=== PATIENT | female | born 1960 | race Caucasian/White ===

== ENCOUNTER 2016-09-12 18:12 | Emergency (ER) | payer OTHER ==
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
[~2016-09-12 18:12] MED LIST: CERTAGEN PO
== END 2016-09-12 19:37 | disposition home or self-care (01) ==
LOC: SED 18:12
DX: S92.415A Nondisplaced fracture of proximal phalanx of left great toe, initial encounter for closed fracture (principal); R03.0 Elevated blood-pressure reading, without diagnosis of hypertension; X58.XXXA Exposure to other specified factors, initial encounter; Y92.009 Unspecified place in unspecified non-institutional (private) residence as the place of occurrence of the external cause
CPT/HCPCS: 29405; 73660; 99283